=== PATIENT | male | born 1990 | race African-American/Black ===

== ENCOUNTER 2018-04-09 15:02 | Emergency (ER) | payer OTHER ==
[~2018-04-09] VITALS: Ht 177.8 cm; Wt 73.9 kg
[2018-04-09 16:08] VITALS: BP 127/73
== END 2018-04-09 16:40 | disposition home or self-care (01) ==
LOC: ER 15:02
DX: S01.21XA Laceration without foreign body of nose, initial encounter (principal); X58.XXXA Exposure to other specified factors, initial encounter; Y93.67 Activity, basketball; Y99.8 Other external cause status; Y92.89 Other specified places as the place of occurrence of the external cause
CPT/HCPCS: 12011